=== PATIENT | female | born 1980 | race African-American/Black ===

== ENCOUNTER 2019-06-29 02:01 | Inpatient (IN) ==
[2019-06-29] MEDS ORDERED: LACTATED RINGERS 1,000 ML IV ONE (02:25)
[2019-06-29] MEDS ORDERED: MEPERIDINE 50 MG/1 ML VIAL IV PRN (02:45)
[2019-06-29] MEDS ORDERED: ONDANSETRON 4 MG/2 ML VIAL IV PRN ×2 (02:45→18:29)
[2019-06-29] MEDS ORDERED: MEPERIDINE 50 MG/1 ML VIAL ONE (02:48)
[2019-06-29] MEDS ORDERED: ONDANSETRON 4 MG/2 ML VIAL ONE (02:48)
[2019-06-29] MEDS: LACTATED RINGERS 1,000 ML IV SCH ×2 (02:55→08:33)
[2019-06-29 03:54] LABS: Barbiturates Screen,Urine Negative (Negative); Benzodiazepines Screen,Urine Negative (Negative); Cannabinoid Screen,Urine Negative (Negative); Opiate Screen,Urine Negative (Negative); Phencyclidine Screen,Urine Negative (Negative)
[2019-06-29] MEDS ORDERED: OXYTOCIN/LR 20 UNIT/1,000 ML BAG IV SCH (05:00)
[2019-06-29] MEDS ORDERED: diphenhydrAMINE 50 MG/1 ML VIAL IV PRN ×2 (05:05)
[2019-06-29] MEDS ORDERED: hydrOXYzine HCL 25 MG/1 ML VIAL IM PRN (05:05)
[2019-06-29] MEDS ORDERED: PROMETHAZINE 25 MG/1 ML VIAL IM PRN (05:05)
[2019-06-29] MEDS ORDERED: NALOXONE 0.4 MG/ML VIAL IV PRN (05:05)
[2019-06-29] MEDS ORDERED: ePHEDrine 50 MG/ML AMP IV PRN (05:05)
[2019-06-29] MEDS ORDERED: FAMOTIDINE 20 MG/2 ML VIAL IV PRN (05:06)
[2019-06-29] MEDS ORDERED: CITRIC ACID/SODIUM CITRATE 30 ML UDCUP PO PRN (05:06)
[2019-06-29] MEDS ORDERED: INFLUENZA VIRUS VACCINE 0.5 ML SYRINGE IM ONE (05:24)
[2019-06-29] MEDS ORDERED: fentaNYL 2 MCG/ROPIV 0.2% EPID 100 ML EPIDURAL SCH (05:30)
[2019-06-29 05:35] LABS: Basophils % 0.3 % (0.0-0.8); Eosinophils % 0.1 % (0.00-10.9); Hematocrit 37.3 VOL% (35.7-47.0); Hemoglobin 12.6 GM/DL (12.0-16.0); Immature Granulocytes % 0.9 %; Immature Granulocytes Absolute 0.07 #; Lymphocytes # 1.1 10*3/uL (1.4-4.0); Lymphocytes % 14.9 % (21.3-54.2); Mean Corpuscular HGB Conc 33.8 GM/DL (32-36); Mean Corpuscular Volume 96.1 FL (87-102); Mean Platelet Volume 11.9 FL (9.6-12.0); Monocytes % 6.4 % (1.7-12.7); Neutrophils % 77.4 % (38.7-73.9); Platelet Count 118 T/CUMM (130-400); Red Blood Count 3.88 MC/CUMM (3.8-5.5); Red Cell Distribution Width 12.5 % (9.3-17.3); White Blood Count 7.6 T/CUMM (4-12)
[2019-06-29 05:44] LABS: INR 0.9; PT Patient Result 9.6 SECS (9.6-12.2)
[2019-06-29 06:07] LABS: Albumin 2.7 G/DL (3.4-5.0); Bilirubin,Total 0.4 MG/DL (0.2-1.0); Calcium 8.8 MG/DL (8.5-10.1); Osmolality,Calculated 274.5 MOS/KG (273-304); Total Protein 6.6 G/DL (6.4-8.3); Uric Acid 4.2 MG/DL (2.6-6.0)
[2019-06-29] MEDS ORDERED: AMPICILLIN INJ 2,000 MG in SODIUM CHLORIDE 0.9% 100 ML IV ONE (06:45)
[2019-06-29 08:22] LABS: Apearance,Urine CLEAR (Clear); Bilirubin,Urine Negative (Negative); Blood, Urine Negative (Negative); Glucose,Urine (UA) Negative (Negative); Hyaline Casts,Urine 1 /LPF (0-3); Ketones,Urine 20 mg/dL (Negative); Mucus,Urine Few /LPF (Occasional); Nitrite,Urine Negative (Negative); Protein,Urine 30 MG/DL; RBC,Urine 1 /HPF (0-4); Squamous Epithelial Cell,Urine Occasional /HPF (0-10); Urine Color Yellow (Yellow); Urine Specific Gravity 1.016 (1.001-1.035); Urine Urobilinogen < 2.0 EU/DL (0.2-1.0); WBC,Urine 1 /HPF (0-6)
[2019-06-29] MEDS ORDERED: AMPICILLIN INJ 1,000 MG in SODIUM CHLORIDE 0.9% 100 ML IV SCH (10:45)
[2019-06-29] MEDS ORDERED: LIDOCAINE 1% 50 ML VIAL ONE (15:24)
[2019-06-29] MEDS ORDERED: miSOPROStoL 200 MCG TABLET ONE (15:24)
[2019-06-29] MEDS ORDERED: METHYLERGONOVINE 0.2 MG/1 ML AMP ONE (15:25)
[2019-06-29] MEDS ORDERED: CARBOPROST TROMETHAMINE 250 MCG/ML AMP IM ONE (15:25)
[2019-06-29 16:08] LABS: Cord Arterial Blood HCO3 25.9 MMOL/L
[2019-06-29 16:10] LABS: Cord Venous Blood HCO3 23.2 MMOL/L; Cord Venous Blood PCO2 40.2 MMHG; Cord Venous Blood PO2 35.1 MMHG
[2019-06-29] MEDS ORDERED: ACETAMINOPHEN 325 MG TABLET PO PRN (18:29)
[2019-06-29] MEDS ORDERED: BISACODYL 10 MG SUPP RECTAL PRN (18:29)
[2019-06-29] MEDS ORDERED: KETOROLAC 15 MG/1 ML VIAL IV PRN (18:29)
[2019-06-29] MEDS ORDERED: MAGNESIUM HYDROXIDE SUSP 30 ML UDCUP PO PRN (18:29)
[2019-06-29] MEDS ORDERED: LACTATED RINGERS 1,000 ML IV SCH (18:30)
[2019-06-29] MEDS: DOCUSATE SODIUM 100 MG CAPSULE PO SCH (21:32)
[2019-06-30 05:52] LABS: Basophils % 0.3 % (0.0-0.8); Eosinophils % 0.1 % (0.00-10.9); Hemoglobin 12.2 GM/DL (12.0-16.0); Immature Granulocytes % 0.6 %; Immature Granulocytes Absolute 0.09 #; Lymphocytes # 2.1 10*3/uL (1.4-4.0); Lymphocytes % 13.7 % (21.3-54.2); Mean Corpuscular HGB Conc 33.9 GM/DL (32-36); Mean Platelet Volume 12.4 FL (9.6-12.0); Monocytes % 6.5 % (1.7-12.7); Neutrophils % 78.8 % (38.7-73.9); Platelet Count 112 T/CUMM (130-400); Red Blood Count 3.71 MC/CUMM (3.8-5.5); Red Cell Distribution Width 12.7 % (9.3-17.3); White Blood Count 15.3 T/CUMM (4-12)
[2019-06-30] MEDS ORDERED: ACETAMINOPHEN/CODEINE 300-30 MG TABLET PO PRN (08:26)
[2019-06-30] MEDS: MULTIVITAMIN (PRENATAL) TABLET PO SCH (08:47)
[2019-06-30] MEDS: DOCUSATE SODIUM 100 MG CAPSULE PO SCH ×2 (08:47→19:46)
[2019-06-30] MEDS: IBUPROFEN 800 MG TABLET PO PRN ×2 (08:48→19:45)
[2019-06-30] MEDS ORDERED: IBUPROFEN 800 MG TABLET PO PRN (18:29)
[2019-07-01 04:54] VITALS: BP 121/68
[2019-07-01] MEDS: MULTIVITAMIN (PRENATAL) TABLET PO SCH (10:00)
[2019-07-01] MEDS: DOCUSATE SODIUM 100 MG CAPSULE PO SCH (10:01)
== END 2019-07-01 11:30 | disposition home or self-care (01) | DRG 560 ==
LOC: N.LDOUT 02:01 → N.LD 02:02 → N.OB 18:25
PROVIDERS: ADMIT Nurse Practitioner; ATTEND Obstetrics & Gynecology